=== PATIENT | male | born 1985 | race Caucasian/White ===

== ENCOUNTER 2021-08-26 22:05 | Emergency (ER) | payer SELFPAY ==
[2021-08-26 23:29] LABS: ESTIMATED GFR > 60 mL/min (>60)
[2021-08-27] MEDS ORDERED: chlordiazePOXIDE 25 MG Cap PO ONE (01:25)
[2021-08-27] MEDS ORDERED: LORazepam 1 MG Tab PO STA (02:10)
== END 2021-08-27 02:15 | disposition other institution (70) ==
LOC: JD.ED 22:05
DX: F10.129 Alcohol abuse with intoxication, unspecified (principal); Z72.0 Tobacco use; Z20.822 Contact with and (suspected) exposure to COVID-19; Y90.0 Blood alcohol level of less than 20 mg/100 ml
CPT/HCPCS: 36415; 80053; 80306; 80307; 84443; 85025; 87635; 99284; A9270; 99283; U0002

== ENCOUNTER 2023-01-01 23:16 | Emergency (ER) | payer SELFPAY ==
[2023-01-02] MEDS ORDERED: chlordiazePOXIDE 25 MG Cap PO ONE (01:29)
== END 2023-01-02 01:50 ==
LOC: JD.ED 23:16
DX: F10.20 Alcohol dependence, uncomplicated (principal); F17.210 Nicotine dependence, cigarettes, uncomplicated
CPT/HCPCS: 99283; A9270